=== PATIENT | male | born 1980 | race Caucasian/White ===

== ENCOUNTER 2017-01-28 10:21 | Emergency (ER) | payer BC ==
[~2017-01-28] VITALS: Ht 436.9 cm; Wt 90.7 kg
== END 2017-01-28 11:19 | disposition home or self-care (01) ==
LOC: ED 10:21
DX: S61.214A Laceration without foreign body of right ring finger without damage to nail, initial encounter (principal); W26.0XXA Contact with knife, initial encounter; Z87.442 Personal history of urinary calculi
CPT/HCPCS: 90471; 90715; 99282